=== PATIENT | female | born 1985 | race Caucasian/White ===

== ENCOUNTER 2018-05-31 19:12 | Emergency (ER) | payer OTHER ==
[~2018-05-31] VITALS: Ht 162.6 cm; Wt 69.4 kg
[2018-05-31 19:15] VITALS: BP 135/97
--- NOTE | 2018-05-31 19:18 | NUR ---
PT AMBULATORY TO ER LOBBY W/ STEADY GAIT IN STABLE CONDITION.
--- NOTE | 2018-05-31 19:25 | NUR ---
pt amb w/o asst to er bed 2
--- NOTE | 2018-05-31 19:31 | NUR ---
PT C/O FACIAL RASH (ITCHINESS) X 2 DAYS. PT HAS RED RASH ON L SIDE OF FACE, SEEN AT URGENT CARE AND TOLD IT WAS A COLD SORE YESTERDAY BUT SINCE GOTTEN WORSE. DENIES CP/SOB, N/V/D, OR FEVERS. DENIES PAIN. HX--NONE
--- NOTE | 2018-05-31 19:36 | NUR ---
REPORT GIVEN TO LUIS LYONS
--- NOTE | 2018-05-31 19:40 | NUR ---
REPORT RECEIVED FROM ELOY DURAN
--- NOTE | 2018-05-31 20:55 | NUR ---
DR HENNESSY AT BEDSIDE
[2018-05-31] MEDS ORDERED: diphenhydrAMINE 50 MG CAP PO ONE (21:25)
--- NOTE | 2018-05-31 21:48 | NUR ---
Patient discharged with v/s stable. Written and verbal after care instructions given and explained. Patient alert, oriented and verbalized understanding of instructions. Ambulatory with steady gait. All questions addressed prior to discharge. ID band removed. Patient advised to follow up with PMD. Rx of CETIRIZINE HYDROCHLORIDE given. Patient educated on indication of medication including possible reaction and side effects. Opportunity to ask questions provided and answered.
== END 2018-05-31 21:48 | disposition home or self-care (01) ==
LOC: MED 19:12
DX: R21 Rash and other nonspecific skin eruption (principal)
CPT/HCPCS: 99282; Q0163